=== PATIENT | female | born 1965 | race Caucasian/White ===

== ENCOUNTER → 2018-01-29 | Day surgery (SDC) | payer OTHER ==
[~2018-01-29] MED LIST: CETIRIZINE HCL10 MG PEG; DICYCLOMINE HCL20 MG PO; FENTANYL CITRATE/PF 100MCG/2 ML INJ ONE; FLUTICASONE; HYDROCORTISONE TOP; HYOSCYAMINE SULFATE 0.5 MG/ML AMP ONE; LANSOPRAZOLE30 MG PO; METOCLOPRAMIDE HCL 10 MG/2ML VIAL ONE; MIDAZOLAM HCL 2 MG/2 ML VIAL ONE; PROPOFOL IV EMULSION 10 MG/ML 50 ML VIAL ONE; SUCRALFATE1 GM PO
[2018-01-29 15:13] LABS: WBC,FECAL (FECAL LACTOFERRIN) POSITIVE (NEGATIVE)
--- NOTE | 2018-01-29 15:15 | Operative Report ---
DATE OF PROCEDURE: January 29, 2018 REFERRING PHYSICIAN: Dr. Zeyad Singh, III PROCEDURES PERFORMED 1. Esophagogastroduodenoscopy with biopsies. 2. Colonoscopy with biopsies. INDICATIONS FOR EGD: Upper abdominal pain, heartburn and indigestion. INDICATIONS FOR COLONOSCOPY: Lower abdominal pain, intermittent diarrhea, history of bright red blood per rectum. MEDICATION: Patient was done under MAC. Please see anesthesiologist's note. PROCEDURE: With the patient in the left lateral decubitus position, the flexible fiberoptic Olympus gastroscope was introduced into the esophagus under direct visualization without any difficulty. There was some patchy erythema noted in the distal esophagus. The scope was then advanced with ease into the stomach traversing a small sliding hiatal hernia. Mucosa overlying the antrum and the body revealed some patchy intense erythema and mild to moderate edema, and biopsies were obtained and sent to stain for H. pylori. Pylorus appeared to be of normal contour and shape. It was intubated with ease. The scope was advanced all the way to the 2nd portion of the duodenum. Biopsies were obtained from the proximal 2nd portion to rule out sprue. The mucosa overlying the duodenal bulb appeared to be within normal limits. The scope was then withdrawn back into the stomach retroflexed. The mucosa overlying the fundus and the cardia appeared to be within normal limits. The scope was then straightened out. Stomach was decompressed. The scope was subsequently withdrawn. Patient tolerated the procedure well. IMPRESSION 1. Distal esophagitis. 2. Small sliding hiatal hernia. 3. Gastritis, biopsied. Biopsies sent to stain for Helicobacter pylori. 4. Rule out sprue. PLAN: Follow up histology. Initiate Protonix 40 mg 1 p.o. q.a.m. a.c. Patient was then turned around. After adequate lubrication of the anal canal, a flexible fiberoptic Olympus colonoscope was inserted into the rectum with ease and advanced all the way to the cecum. Mucosa overlying the cecum appeared to be within normal limits. The ileocecal was intubated, and the scope was advanced into the terminal ileum. Biopsies were obtained. The scope was then withdrawn back into the colon. It was then withdrawn slowly. Mucosa overlying the ascending and the transverse grossly appeared to be within normal limits. There were mild patchy inflammatory changes noted in the colon. Multiple random biopsies were obtained. The scope was then retroflexed into the distal rectum and small internal hemorrhoids were noted, none of which were actively bleeding. The scope was then straightened out. The rectosigmoid area, as well as the distal rectal area were decompressed. The scope was subsequently withdrawn after securing an adequate stool specimen that was sent for the appropriate stool studies. Patient tolerated the procedure well. IMPRESSION 1. Mild patchy left-sided colitis, random biopsies obtained. 2. Internal hemorrhoids, none actively bleeding. PLAN: Follow up histology. Follow up stool studies. Initiate VSL #3 one p.o. b.i.d. and Flagyl 500 mg 1 p.o. q.i.d. times 2 weeks. Job#: [id number] RI cc: ZEYAD SINGH MD, III
[2018-01-30 13:18] LABS: C DIFFICILE TOXIN A&B AMP PROB NEGATIVE (NEGATIVE)
== END | disposition home or self-care (01) ==
LOC: OR 11:31
PROVIDERS: ATTEND Internal Medicine Gastroenterology
DX: K51.50 Left sided colitis without complications (principal); K29.50 Unspecified chronic gastritis without bleeding; K59.00 Constipation, unspecified; K20.9 Esophagitis, unspecified; K44.9 Diaphragmatic hernia without obstruction or gangrene; K64.8 Other hemorrhoids; Z88.0 Allergy status to penicillin; Z01.810 Encounter for preprocedural cardiovascular examination
CPT/HCPCS: 43239; 45380; 83630; 83993; 87045; 87177; 87328; 87493; 93005; J1980; J2250; J2765